=== PATIENT | female | born 1955 | race Caucasian/White ===

== ENCOUNTER 2018-04-06 06:29 | Day surgery (SDC) | payer OTHER ==
[2018-04-06] MEDS ORDERED: LR 1,000 ML IV ONE (06:42)
[2018-04-06] MEDS ORDERED: PROPOFOL/EMULSION 500 MG/50 ML BOTTLE IV ONE (08:12)
[2018-04-06] MEDS ORDERED: MIDAZOLAM 2 MG/2 ML VIAL ONE (08:12)
--- NOTE | 2018-04-06 08:21 | PDHPUP ---
History & Physical Update H&P update statement: This history and physical update is based on an assessment of the patient which was completed after admission or registration (within 24 hours), but prior to the surgery/procedure. H&P update: H&P reviewed & patient examined, no change in patient's condition since H&P completed
[2018-04-06] MEDS ORDERED: METOCLOPRAMIDE 10 MG/2 ML VIAL ONE (08:34)
[2018-04-06] MEDS ORDERED: LIDOCAINE 2% 5 ML SDV ONE (08:34)
[2018-04-06] MEDS ORDERED: DEXAMETHASONE 4 MG/ML VIAL ONE (08:34)
[2018-04-06] MEDS ORDERED: KETOROLAC 30 MG/1 ML SDV ONE (08:34)
[2018-04-06] MEDS ORDERED: RANITIDINE 50 MG/2 ML VIAL ONE (08:34)
[2018-04-06] MEDS ORDERED: ONDANSETRON 4 MG/2 ML VIAL ONE (08:34)
[2018-04-06] MEDS ORDERED: LR 500 ML IV PRN (08:41)
[2018-04-06] MEDS ORDERED: fentaNYL 100 MCG/2 ML INJ IVP PRN (08:41)
[2018-04-06] MEDS ORDERED: PROMETHAZINE HCL 25 MG/ML INJ IVP PRN (08:41)
[2018-04-06] MEDS ORDERED: ACETAMINOPHEN 500 MG TAB PO PRN (08:41)
[2018-04-06] MEDS ORDERED: ALBUTEROL 3 ML DEYVIAL IH PRN (08:41)
[2018-04-06] MEDS ORDERED: METOCLOPRAMIDE 10 MG/2 ML VIAL IVP PRN (08:41)
[2018-04-06] MEDS ORDERED: NALOXONE HCL 0.4 MG/ML INJ IVP PRN (08:41)
[2018-04-06] MEDS ORDERED: DEXAMETHASONE 4 MG/ML VIAL IVP PRN (08:41)
[2018-04-06] MEDS ORDERED: HYDROCODONE/APAP 5/325 TAB PO PRN (08:41)
[2018-04-06] MEDS ORDERED: ONDANSETRON 4 MG/2 ML VIAL IVP PRN (08:41)
[2018-04-06] MEDS ORDERED: MEPERIDINE 25 MG/0.5 ML AMP IVP PRN (08:41)
--- NOTE | 2018-04-06 08:41 | PDANEPAE ---
ANE Past Medical History - Cardiovascular History Hx Hypertension: No Hx Arrhythmias: No Hx Chest Pain: No Hx Coronary Artery / Peripheral Vascular Disease: No Hx CHF / Valvular Disease: No Hx Palpitations: No - Pulmonary History Hx COPD: No Hx Asthma/Reactive Airway Disease: No Hx Recent Upper Respiratory Infection: No Hx Oxygen in Use at Home: No Hx Sleep Apnea: No Sleep Apnea Screening Result - Last Documented: Negative - Neurologic History Hx Cerebrovascular Accident: No Hx Seizures: No Hx Dementia: No - Endocrine History Hx Diabetes: No Endocrine History Comment: CIARA THYROID-HYPOTHYROID - Renal History Hx Renal Disorders: No - Liver History Hx Hepatic Disorders: No - Neurological & Psychiatric Hx Hx Neurological and Psychiatric Disorders: No Neurological / Psychiatric History Comment: BILAT HIP PAIN- [place] BY /CHIROPRACTOR - Cancer History Hx Cancer: No - Congenital Disorder History Hx Congenital Disorders: No - GI History Hx Gastrointestinal Disorders: No - Other Health History Other Health History: ENDOMETRIAL THICKENING;. OA- HIPS, HANDS. - Chronic Pain History Chronic Pain: No - Surgical History Prior Surgeries: R KNEE SCOPE -MENISCAL TEAR 01-27;. CYST EXCISED L BREAST ; ANE Review of Systems Review of Systems: - Exercise capacity METS (RN): 4 METS ANE Patient History - Allergies Allergies/Adverse Reactions: Penicillins Allergy (Verified 03/21/18 15:45) Other-Enter Comments - Home Medications Home Medications: CIARA THYROID 03/21/18 [Last Taken 04/05/18] Acetaminophen 8 Hour 03/21/18 [Last Taken 04/04/18] - NPO status NPO Since - Liquids (Date): 04/06/18 NPO Since - Liquids (Time): 05:00 NPO Since - Solids (Date): 04/05/18 NPO Since - Solids (Time): 23:00 - Smoking Hx Smoking Status: Former smoker ANE Labs/Vital Signs - Vital Signs Blood Pressure: 142/68 Heart Rate: 72 Respiratory Rate: 14 O2 Sat (%): 96 Height: 152.4 cm Weight: 61.689 kg ANE Physical Exam - Airway Neck exam: FROM Mallampati Score: Class 1 Mouth exam: normal dental/mouth exam - Pulmonary Pulmonary: no respiratory distress, no rales or rhonchi, clear to auscultation - Cardiovascular Cardiovascular: regular rate and rhythym, no murmur, rub, or gallop - ASA Status ASA Status: II ANE Anesthesia Plan Anesthesia Plan: GA w LMA Total IV Anesthesia: Yes
--- NOTE | 2018-04-06 09:03 | POSTOPPROG ---
Post Op Note Date of Operation: 04/06/18 Surgeon: Kika Trevino Anesthesiologist: Carmen Fletcher Anesthesia: LMA Pre-op Diagnosis: thick endometrium Post-op Diagnosis: endometrial fibroid and polyp Indication: thickened endometrium Procedure: H/S myomectomy Findings: anterior wall , fibroid Inf/Abcess present in the surg proc area at time of surgery?: No EBL: Minimal Complications: none
--- NOTE | 2018-04-06 09:33 | GOP ---
[f rep st] OPERATIVE REPORT DATE OF OPERATION: 04/06/2018 SURGEON: Kika Trevino MD ANESTHESIA: Kaitlynn Arambula MD; general with LMA. PREOPERATIVE DIAGNOSIS: Thickened endometrial lining at 1.6 cm. POSTOPERATIVE DIAGNOSIS: Submucosal fibroid. PROCEDURE PERFORMED: Hysteroscopic myomectomy. FINDINGS: An anterior wall fibroid impinging into the endometrium, and there were 2 small polyps pio r the right tubal ostia, normal cervix; and otherwise normal endometrium. ESTIMATED BLOOD LOSS: Minimal. INDICATIONS: Patient is a 62-year-old, G2, P2, long-term postmenopausal. Ultrasound done for pelvic pressure noted to have a complex ovarian cyst and incidentally noted to have a thickened endometrial stripe. Repeat ultrasound showed resolution of the ovarian mass with persistent thickened endometri al stripe. Endometrial biopsy done approximately 9 months ago and this was insufficient, so recommen d hysteroscopic resection of thickened tissue in the endometrium. DESCRIPTION OF PROCEDURE: With informed consent signed, patient was taken to the operating room, naty bala under general anesthesia, and placed in the low dorsal lithotomy position. Bladder previously em ptied. Prepped and draped in the usual sterile fashion. After the time-out was acceptable, the spec ulum placed in the vagina and tenaculum placed on the anterior lip of the cervix and cervix dilated t o 7 mm. Hysteroscope placed using normal saline as a filling medium into the uterine cavity and find ings as noted above. The [employer] morcellator small rotary blade was placed into th e hysteroscope and resection of the above fibroid done. Once it was felt that all this tissue was re moved, hemostasis was accomplished. The procedure was completed and net fluid deficit was approximat rosy 200 cc. Patient placed in supine position, awakened in the operating room, and taken to the milad very room, having tolerated the procedure well. COMPLICATIONS: None. Copy requested to: Parvin Villegas [facility] /[id number]/MODL
[2018-04-06] MEDS ORDERED: ACETAMINOPHEN 500 MG TAB ONE (09:41)
--- NOTE | 2018-04-06 09:41 | POSTANESTH ---
Post Anesthetic Evaluation Cardiovascular Status: Normal, Stable, Similar to Pre-Op Cond Respiratory Status: Normal, Stable, Similar to Pre-op Cond. Level of Consciousness/Mental Status: Mildly Sleepy, Arousable Pain Control: Adequate, Prn Tx Ordered Nausea/Vomiting Control: Adequate, Prn Tx Ordered Complications Possibly Related to Anesthesia: None Noted
[2018-04-06 10:13] VITALS: BP 115/67
== END 2018-04-06 10:08 | disposition home or self-care (01) ==
LOC: FSGY 06:29
PROVIDERS: ATTEND Obstetrics & Gynecology Gynecology
PROC: 0UB98ZZ Excision of Uterus, Via Natural or Artificial Opening Endoscopic (ICD-10-PCS; principal; 2018-04-06 08:15)
DX: D25.0 Submucous leiomyoma of uterus (principal); Z78.0 Asymptomatic menopausal state; E03.9 Hypothyroidism, unspecified; Z88.0 Allergy status to penicillin
CPT/HCPCS: 58561; C1782; J1100; J1885; J2250; J2405; J2704; J2765; J2780